=== PATIENT | female | born 1990 | race Caucasian/White ===

== ENCOUNTER 2019-10-16 18:02 | Emergency (ER) | payer MEDICAID, OTHER ==
[~2019-10-16] VITALS: Ht 160 cm; Wt 76.0 kg
[2019-10-16] MEDS ORDERED: ACETAMINOPHEN 325MG TABLET PO STA (19:01)
[2019-10-16 20:27] LABS: BASOPHILS % 0.7 % (0.0-2.0); EOSINOPHILS % 2.3 % (0.0-5.0); HEMATOCRIT. 32.9 % (36.0-48.0); HEMOGLOBIN. 11.1 g/dL (12.0-16.0); MEAN CORPUSCULAR HEMOGLOBIN 29.1 pg (28.0-32.0); MEAN CORPUSCULAR VOLUME 86.5 fL (81.0-99.0); MEAN PLATELET VOLUME 9.3 fl (7.4-10.4); MONOCYTES % 9.6 % (2.0-8.0); NEUTROPHILS % 56.4 % (40.0-76.0); PLATELET 242 x1000/uL (130-400); RED CELL DISTRIBUTION WIDTH 15.5 % (11.6-14.6)
[2019-10-16 20:32] LABS: CHLORIDE 111 mEq/L (98-107)
[2019-10-16 20:33] LABS: PROTHROMBIN TIME 10.9 sec (9.6-11.0)
[2019-10-16] MEDS ORDERED: CEPHALEXIN 250MG CAPSULE PO NR (20:45)
[2019-10-16 21:18] LABS: CLARITY URINE TURBID (CLEAR); COLOR URINE YELLOW (YELLOW); KETONES URINE NEGATIVE (NEGATIVE); LEUKOCYTE ESTERASE URINE NEGATIVE (NEGATIVE); NITRITE URINE NEGATIVE (NEGATIVE); OCCULT BLOOD URINE NEGATIVE (NEGATIVE); PROTEIN URINE NEGATIVE (NEGATIVE); SPECIFIC GRAVITY URINE 1.025 (1.005-1.030)
[2019-10-16 21:21] VITALS: BP 128/71
[2019-10-16 21:28] LABS: HCG SCREEN NEGATIVE
[2019-10-16 21:30] LABS: *BARBITURATES SCREEN URINE NEGATIVE (NEGATIVE); *BENZODIAZEPINES SCREEN URINE NEGATIVE (NEGATIVE); *COCAINE SCREEN URINE NEGATIVE (NEGATIVE); METHADONE URINE SCREEN NEGATIVE (NEGATIVE)
[2019-10-16 21:32] LABS: OPIATES URINE SCREEN NEGATIVE (NEGATIVE); PHENCYCLIDINE URINE SCREEN NEGATIVE (NEGATIVE)
[2019-10-16 21:35] LABS: *AMPHETAMINES SCREEN URINE PRESUMTIVE POSITIVE (NEGATIVE); CANNABINOID URINE SCREEN PRESUMTIVE POSITIVE (NEGATIVE)
== END 2019-10-16 21:22 | disposition home or self-care (01) ==
LOC: ER 18:02
DX: L03.115 Cellulitis of right lower limb (principal); R60.0 Localized edema; M25.571 Pain in right ankle and joints of right foot; M25.572 Pain in left ankle and joints of left foot; R03.0 Elevated blood-pressure reading, without diagnosis of hypertension; E87.6 Hypokalemia
CPT/HCPCS: 36415; 71045; 80053; 80305; 81003; 84703; 85025; 93970; 99285

== ENCOUNTER 2023-10-13 13:18 | Emergency (ER) | payer MEDICAID, OTHER ==
[~2023-10-13] VITALS: Ht 165.1 cm; Wt 85.0 kg
[2023-10-13 13:19] VITALS: O2SAT 99
[2023-10-13] MEDS: IBUPROFEN 600MG TABLET PO ONE (14:15)
[2023-10-13] MEDS ORDERED: IBUP-2029 MT (16:24)
[2023-10-13] MEDS ORDERED: T3 PO (16:24)
[2023-10-13 16:41] VITALS: BP 138/87; PULSE 85; RESP 19; TEMP 98.2
== END 2023-10-13 16:41 | disposition home or self-care (01) ==
LOC: ER 13:25
DX: R10.11 Right upper quadrant pain (principal); Z98.890 Other specified postprocedural states
CPT/HCPCS: 74176; 81025; 99291